=== PATIENT | female | born 1955 | race Caucasian/White ===

== ENCOUNTER → 2021-06-20 | Outpatient (CLI) | payer OTHER, BC ==
[~2021-06-20] MED LIST: AMLODIPINE BESY10 MG PO; BENTYL10 MG PO; CELEBREX200 MG PO; COLESTIPOL HCL1 GM PO; COVID-19 VACC, MRNA(MODERNA)/PF 100 MCG/0.5 ML VIAL IM ONE; CYMBALTA30 MG PO; DEXILANT60 MG PO; ENBREL50 MG/1 ML INJ; FIORINAL WITH1 EACH PO; FOLIC ACID1 MG PO; HYDROCHLOROTH12.5 MG PO; LOSARTAN POTAS100 MG PO; METHOTREXATE2.5 MG PO; NORCO 5-325 TA1 EACH PO; OSCAL PO; VITAMIN D PO; [UNRECOGNIZED DRUG - OTHER] PO
== END ==
LOC: VACCPMC 10:20
DX: Z23 Encounter for immunization (principal); Z20.822 Contact with and (suspected) exposure to COVID-19
CPT/HCPCS: 91301

== ENCOUNTER → 2021-10-24 | Outpatient (CLI) | payer MEDICARE, OTHER ==
[~2021-10-24] MED LIST changes: -COVID-19 VACC, MRNA(MODERNA)/PF 100 MCG/0.5 ML VIAL IM ONE
== END ==
LOC: RAD 12:36
PROVIDERS: ATTEND Internal Medicine
DX: J40 Bronchitis, not specified as acute or chronic (principal)
CPT/HCPCS: 71046

== ENCOUNTER 2022-04-14 09:11 | Emergency (ER) | payer MEDICARE, OTHER ==
[~2022-04-14] VITALS: Ht 162.6 cm; Wt 83.9 kg
[2022-04-14] MEDS ORDERED: NAPROXEN250 MG PO (10:58)
== END 2022-04-14 11:30 | disposition home or self-care (01) ==
LOC: ER 09:16
DX: M25.511 Pain in right shoulder (principal); W01.0XXA Fall on same level from slipping, tripping and stumbling without subsequent striking against object, initial encounter; Y93.01 Activity, walking, marching and hiking; Y92.238 Other place in hospital as the place of occurrence of the external cause; I10 Essential (primary) hypertension
CPT/HCPCS: 99283

== ENCOUNTER → 2022-05-16 | Outpatient (CLI) | payer MEDICARE, OTHER ==
[~2022-05-16] MED LIST changes: +NAPROXEN250 MG PO
== END ==
LOC: MRI 08:57
PROVIDERS: ATTEND Internal Medicine Rheumatology
DX: M25.511 Pain in right shoulder (principal)

== ENCOUNTER → 2024-10-19 | Outpatient (REF) | payer MEDICARE, OTHER ==
[~2024-10-19] MED LIST changes: +ADVIL PM CAPLE1 EACH; +ATENOLOL50 MG PO; +DESVENLAFAXINE50 M1; +FUROSEMIDE40 MG PO; +OMEPRAZOLE40 MG PO
== END ==
LOC: CT 09:32
PROVIDERS: ATTEND Internal Medicine
DX: G45.9 Transient cerebral ischemic attack, unspecified (principal)
CPT/HCPCS: 70450

== ENCOUNTER → 2024-10-20 | Outpatient (REF) | payer MEDICARE, OTHER | LOC: CARD 09:42 | PROVIDERS: ATTEND Internal Medicine | DX: G45.9 Transient cerebral ischemic attack, unspecified (principal) | CPT/HCPCS: 93880 ==

== ENCOUNTER → 2024-10-29 | Outpatient (REF) | payer MEDICARE, OTHER | LOC: MRI 10:10 | PROVIDERS: ATTEND Internal Medicine | DX: G45.9 Transient cerebral ischemic attack, unspecified (principal) | CPT/HCPCS: 70551 ==

== ENCOUNTER → 2025-05-04 | Outpatient (REF) | payer MEDICARE, OTHER | LOC: US 13:46 | PROVIDERS: ATTEND Internal Medicine Rheumatology | DX: M05.79 Rheumatoid arthritis with rheumatoid factor of multiple sites without organ or systems involvement (principal); N28.9 Disorder of kidney and ureter, unspecified; Z79.899 Other long term (current) drug therapy | CPT/HCPCS: 76770; 76857 ==